=== PATIENT | female | born 1955 | race Caucasian/White ===

== ENCOUNTER → 2017-10-15 | Outpatient (CLI) | payer OTHER ==
--- NOTE | 2017-10-15 09:24 | RAD ---
Three-view lumbar spine series INDICATIONS: Lower back pain for 2 weeks after picking up an object and twisted back. Back injury. COMPARISON: None available. FINDINGS: The transverse processes are intact. No compression fracture or discitis or osteolytic process or anterolisthesis is seen. There is moderate degenerative disc space narrowing and mild degenerative endplate spurring at L3-4. There is mild degenerative disc space narrowing and moderate posterior endplate spurring at L5-S1. This may result in spinal canal stenosis and/or neural foraminal narrowing. IMPRESSION: No acute compression fracture. Degenerative spondylosis at L3-4 and L5-S1. Electronically signed by: Franky Adames MD (10/15/2017 9:21 AM) [facility]
== END | disposition home or self-care (01) ==
LOC: RAD 08:42
PROVIDERS: ATTEND Family Medicine
DX: M47.897 Other spondylosis, lumbosacral region (principal); M51.37 Other intervertebral disc degeneration, lumbosacral region; M48.061 Spinal stenosis, lumbar region without neurogenic claudication
CPT/HCPCS: 72100

== ENCOUNTER → 2020-03-21 | Outpatient (CLI) | payer MEDICARE, OTHER ==
--- NOTE | 2020-03-21 14:11 | RAD ---
Exam: US DPLX VENOUS EXTREMITY LOWER LT Indication: Reason: ELEVATED D DIMER; LEG PAIN / Spl. Instructions: / History: Technique: Color-flow and pulsed wave duplex ultrasound with compression of venous structures of the left lower extremity. Comparison: None Available. Findings: Duplex ultrasound with compression of the deep venous structures of the left lower extremit y from the common femoral vein through the popliteal vein is negative for DVT. The posterior tibial a nd peroneal veins are segmentally visualized and patent where seen. Normal venous waveforms and augme ntation are noted throughout. Impression: No evidence for DVT in the left lower extremity. Electronically signed by: Wood Coelho MD (03/21/2020 2:09 PM) [place]
== END ==
LOC: US 11:05
PROVIDERS: ATTEND Family Medicine
DX: M79.605 Pain in left leg (principal); R79.89 Other specified abnormal findings of blood chemistry
CPT/HCPCS: 93971